=== PATIENT | female | born 1975 | race Caucasian/White ===

== ENCOUNTER 2016-09-09 20:36 | Emergency (ER) | payer OTHER ==
[~2016-09-09] VITALS: Ht 162.5 cm; Wt 86.2 kg
[~2016-09-09 20:36] MED LIST: BACTRIM DS 8001 TA1 PO; CEPHALEXIN500 M1 PO; CIPROFLOXACIN500 MG PO; CLARITIN10 MG PO; CLINDAMYCIN HC300 MG PO; ELMIRON100 MG PO; FLEXERIL10 MG PO; HYDROCODONE BIT1 T11 PO; LIDEX 0.05% CRE15 GM T; METOPROLOL SUCC25 M2 PO; MOTRIN800 MG PO; NKHM PO; PENICILLIN250 MG PO; PREDNISONE10 MG PO; ROBITUSSIN AC 110 ML PO; TRAMADOL HCL50 MG PO; VENTOLIN H0.09 MG/AC INH; VICO75300 PO; ZITHROMAX Z PA250 MG PO; ZOVIRAX400 MG PO
[2016-09-09 20:58] VITALS: BP 149/89
[2016-09-09] MEDS ORDERED: BACTRIM DS 8001 TA1 PO (21:39)
== END 2016-09-09 22:35 | disposition home or self-care (01) ==
LOC: ED 20:36
DX: S60.562A Insect bite (nonvenomous) of left hand, initial encounter (principal); F17.200 Nicotine dependence, unspecified, uncomplicated; Z79.899 Other long term (current) drug therapy; W57.XXXA Bitten or stung by nonvenomous insect and other nonvenomous arthropods, initial encounter; Y93.9 Activity, unspecified; Y92.9 Unspecified place or not applicable; Y99.9 Unspecified external cause status

== ENCOUNTER 2016-11-26 13:06 | Emergency (ER) | payer OTHER ==
[~2016-11-26] VITALS: Wt 86.2 kg
[2016-11-26 13:19] VITALS: BP 147/89
[2016-11-26] MEDS ORDERED: BENADRYL ALLERG25 M5 PO (13:30)
[2016-11-26] MEDS ORDERED: PREDNISONE50 MG PO (13:30)
== END 2016-11-26 14:03 | disposition home or self-care (01) ==
LOC: ED 13:06
DX: H02.841 Edema of right upper eyelid (principal); R05 Cough; F17.200 Nicotine dependence, unspecified, uncomplicated; Z79.899 Other long term (current) drug therapy

== ENCOUNTER → 2016-11-27 | Outpatient (CLI) | payer OTHER ==
[~2016-11-27] MED LIST changes: +BENADRYL ALLERG25 M5 PO; +PREDNISONE50 MG PO
[2016-11-30 17:09] LABS: ALTERNARIA ALTERNATA, IGE <0.10 kU/L (Class 0); AMERICAN ELM, IGE <0.10 kU/L (Class 0); ASPERGILLUS FUMIGATU, IGE <0.10 kU/L (Class 0); BERMUDA GRASS, IGE <0.10 kU/L (Class 0); BIRCH, COMMON SILVER IGE <0.10 kU/L (Class 0); CLADOSPORIUM HERBARU, IGE <0.10 kU/L (Class 0); CORN, IGE <0.10 kU/L (Class 0); D FARINAE MITE 8.27 kU/L (Class IV); D PTERONYSSINUS 9.87 kU/L (Class IV); IMMUNOGLOBULIN IgE 002170 540 IU/mL (0-100); MAPLE LEAF SYCAMORE, IGE <0.10 kU/L (Class 0); MAPLE/BOX ELDER, IGE 0.24 kU/L (Class 0/I); MILK (COW), IGE 6.79 kU/L (Class IV); MOUSE URINE IGE <0.10 kU/L (Class 0); PEANUT, IGE 0.18 kU/L (Class 0/I); PECAN TREE (HICKORY) IGE <0.10 kU/L (Class 0); PENICILLIUM CHRYSOGENUM, IGE <0.10 kU/L (Class 0); ROUGH PIGWEED, IGE <0.10 kU/L (Class 0); SHEEP SORREL (DOCK), IGE <0.10 kU/L (Class 0); SHORT RAGWEED, IGE 4.29 kU/L (Class IV); SOYBEAN, IGE <0.10 kU/L (Class 0); TIMOTHY, IGE <0.10 kU/L (Class 0); WALNUT TREE, IGE <0.10 kU/L (Class 0); WHEAT, IGE <0.10 kU/L (Class 0); WHITE ASH, IGE <0.10 kU/L (Class 0); WHITE MULBERRY, IGE <0.10 kU/L (Class 0); WHITE OAK, IGE <0.10 kU/L (Class 0)
== END | disposition home or self-care (01) ==
LOC: LAB 10:15
PROVIDERS: Family Medicine
DX: L50.9 Urticaria, unspecified (principal); T78.49XA Other allergy, initial encounter

== ENCOUNTER 2017-01-10 15:02 | Emergency (ER) | payer OTHER ==
[~2017-01-10] VITALS: Ht 160 cm; Wt 81.6 kg
[2017-01-10 15:24] VITALS: BP 150/101
[2017-01-10] MEDS ORDERED: PREDNISONE10 MG PO (15:27)
[2017-01-10] MEDS ORDERED: FLONASE ALLERG9.9 ML NAS (15:27)
[2017-01-10] MEDS ORDERED: CLARITIN10 MG PO (15:27)
== END 2017-01-10 16:15 | disposition home or self-care (01) ==
LOC: ED 15:02
DX: B34.9 Viral infection, unspecified (principal); R03.0 Elevated blood-pressure reading, without diagnosis of hypertension; F17.200 Nicotine dependence, unspecified, uncomplicated; Z79.899 Other long term (current) drug therapy

== ENCOUNTER 2017-06-08 09:38 | Emergency (ER) | payer OTHER ==
[~2017-06-08] VITALS: Ht 160 cm; Wt 86.2 kg
[~2017-06-08 09:38] MED LIST changes: +FLONASE ALLERG9.9 ML NAS
[2017-06-08 09:43] VITALS: BP 145/78
[2017-06-08] MEDS ORDERED: NAPROSYN500 MG PO (09:50)
[2017-06-08] MEDS ORDERED: CHLORZOXAZONE500 M2 PO (09:50)
== END 2017-06-08 11:58 | disposition home or self-care (01) ==
LOC: ED 09:38
DX: M54.5 Low back pain (principal); R03.0 Elevated blood-pressure reading, without diagnosis of hypertension; F17.200 Nicotine dependence, unspecified, uncomplicated; Z79.899 Other long term (current) drug therapy

== ENCOUNTER 2018-08-03 11:12 | Emergency (ER) | payer OTHER ==
[~2018-08-03] VITALS: Ht 162.5 cm; Wt 90.7 kg
[~2018-08-03 11:12] MED LIST changes: +CHLORZOXAZONE500 M2 PO; +NAPROSYN500 MG PO
[2018-08-03 11:15] VITALS: BP 164/93
[2018-08-03] MEDS ORDERED: TAMIFLU 75MG CA75 MG PO (14:11)
== END 2018-08-03 14:14 | disposition home or self-care (01) ==
LOC: ED 11:12
DX: J11.1 Influenza due to unidentified influenza virus with other respiratory manifestations (principal); F17.200 Nicotine dependence, unspecified, uncomplicated; Z79.899 Other long term (current) drug therapy

== ENCOUNTER 2019-10-12 18:51 | Emergency (ER) | payer OTHER ==
[~2019-10-12] VITALS: Ht 162.5 cm; Wt 81.6 kg
[~2019-10-12 18:51] MED LIST changes: +TAMIFLU 75MG CA75 MG PO
[2019-10-12 20:35] LABS: BASO # 0.1 10*3/uL (0.0-0.1); BASO % 0.4 % (0.0-1.0); EOS # 0.2 10*3/uL (0.0-0.4); EOS % 1.3 % (1.0-4.0); HEMATOCRIT 43.7 % (37.0-47.0); LYMPH # 3.5 10*3/uL (1.3-4.4); LYMPH % 23.3 % (27.0-41.0); MEAN CORPUSCULAR HGB 28.9 pg (27.0-31.0); MEAN CORPUSCULAR HGB CONC 33.6 g/dl (33.0-37.0); MEAN PLATELET VOLUME 10.3 fl (9.6-12.3); MONO % 6.3 % (3.0-9.0); NEUT # 10.3 10*3/uL (2.3-7.9); PLATELET COUNT AUTOMATED 382 10*3/uL (130-400); RED BLOOD COUNT 5.08 10*6/uL (4.10-5.10); RED CELL DISTRI WIDTH 14.6 % (0-14.5); WHITE BLOOD COUNT 15.2 10*3/uL (4.8-10.8)
[2019-10-12 20:52] LABS: ALBUMIN 3.6 gm/dl (3.1-4.5); ALKALINE PHOSPHATASE 69 U/L (45-117); BUN 8 mg/dl (7-24); CHLORIDE 102 mmol/L (98-107); CREATININE 0.79 mg/dL (0.55-1.02); POTASSIUM 3.3 mmol/L (3.5-5.1); SGOT/AST 9 IU/L (3-35); SGPT/ALT 22 U/L (12-78); SODIUM 136 mmol/L (136-145); TOTAL PROTEIN 7.3 gm/dL (6.4-8.2)
[2019-10-12 21:05] LABS: TROPONIN I < 0.015 ng/ml (<0.045)
[2019-10-12 22:27] VITALS: BP 130/87
== END 2019-10-12 23:29 | disposition home or self-care (01) ==
LOC: ED 18:51
PROVIDERS: Emergency Medicine
DX: R55 Syncope and collapse (principal); R42 Dizziness and giddiness; I10 Essential (primary) hypertension; E11.9 Type 2 diabetes mellitus without complications; Z79.899 Other long term (current) drug therapy

== ENCOUNTER 2019-12-15 16:00 | Emergency (ER) | payer OTHER ==
[~2019-12-15] VITALS: Ht 162.5 cm; Wt 81.6 kg
[2019-12-15 16:06] VITALS: BP 126/86
[2019-12-15] MEDS ORDERED: NAPROSYN500 MG PO (16:41)
[2019-12-15] MEDS ORDERED: METHOCARBAMOL500 M1 PO (16:41)
[2019-12-15] MEDS ORDERED: MEDROL DOSEPAK4 MG PO (16:41)
== END 2019-12-15 17:20 | disposition home or self-care (01) ==
LOC: ED 16:00
DX: S16.1XXA Strain of muscle, fascia and tendon at neck level, initial encounter (principal); Z79.899 Other long term (current) drug therapy; V89.2XXA Person injured in unspecified motor-vehicle accident, traffic, initial encounter; Y93.89 Activity, other specified; Y92.89 Other specified places as the place of occurrence of the external cause; Y99.8 Other external cause status